=== PATIENT | female | born 1945 | race Hispanic/Latino ===

== ENCOUNTER 2019-05-22 13:49 | Inpatient (IN) | payer OTHER ==
[~2019-05-22] VITALS: Ht 167.6 cm; Wt 59.2 kg
[2019-05-22] MEDS ORDERED: CYCLOBENZAPRINE HCL 10 MG TABLET ONE (15:08)
[2019-05-22] MEDS ORDERED: TRAMADOL HCL 50 MG TABLET ONE (15:08)
[2019-05-22] MEDS ORDERED: ONDANSETRON ODT 4 MG TAB ONE (15:08)
[2019-05-22 16:43] LABS: BASOPHILS % (AUTO) 0.6 % (0.0-5.0); EOSINOPHILS % (AUTO) 0.7 % (0.0-8.0); HEMATOCRIT 34.4 % (36-48); LYMPHOCYTES % (AUTO) 16.4 % (21.0-51.0); MEAN CORPUSCULAR HEMOGLOBIN 30.2 pg (27.0-33.0); MEAN CORPUSCULAR HGB CONC 33.6 g/dL (32.0-36.0); MEAN CORPUSCULAR VOLUME 89.8 fL (79-99); MONOCYTES % (AUTO) 4.6 % (3.0-13.0); NEUTROPHILS % (AUTO) 77.7 % (40.0-77.0); PLATELET COUNT (AUTO) 289 K/uL (130-400); RED BLOOD CELL COUNT(AUTO) 3.83 MIL/uL (4.00-5.50); WHITE BLOOD COUNT (AUTO) 7.3 K/uL (4.8-10.8)
[2019-05-22 17:02] LABS: CREATININE 0.7 mg/dL (0.5-1.5); POTASSIUM 3.7 mmol/L (3.5-5.1)
[2019-05-22 17:08] LABS: ALBUMIN 3.8 g/dL (3.5-5.0); BILIRUBIN,TOTAL 0.3 mg/dL (0.2-1.0); TOTAL PROTEIN, SERUM 7.6 g/dL (6.0-8.3)
[2019-05-22] MEDS ORDERED: IOHEXOL-350 50ML VIAL IV ONE (17:39)
[2019-05-22] MEDS ORDERED: ONDANSETRON HCL 4 MG/2 ML VIAL ONE (19:28)
[2019-05-22] MEDS ORDERED: SODIUM CHLORIDE 0.9% 500ML 500 ML IV ONE (19:29)
[2019-05-22] MEDS ORDERED: MORPHINE SULFATE 4 MG/1ML SYG ONE (19:29)
[2019-05-22] MEDS ORDERED: ONDANSETRON HCL 4 MG/2 ML VIAL IV PRN (19:45)
[2019-05-22] MEDS ORDERED: HYDROCODONE/ACETAMINOPHEN 5/325 MG TAB PO PRN (19:45)
[2019-05-22] MEDS ORDERED: DEXTROSE 50%-WATER 50 ML DISP.SYRIN IV PRN (19:45)
[2019-05-22] MEDS ORDERED: ACETAMINOPHEN 325 MG TAB PO PRN (19:45)
[2019-05-22] MEDS ORDERED: GLUCAGON 1MG KIT 1 MG ML IM PRN (19:45)
[2019-05-22] MEDS ORDERED: NITROGLYCERIN 0.4 MG SL TAB SL PRN (19:45)
[2019-05-22 20:14] LABS: HEMOGLOBIN A1C 6.8 % (4.0-6.0)
[2019-05-22 20:21] LABS: CREATINE KINASE, TOTAL 29 U/L (21-232); MYOGLOBIN 23 ng/mL (10-92); TROPONIN I < 0.04 ng/mL (0.00-0.06)
[2019-05-22 22:30] VITALS: BP 186/80
[2019-05-22] MEDS: INSULIN HUMULIN R 100 UNIT/ML 3ML SQ SCH (23:00)
[2019-05-22] MEDS: FAMOTIDINE 20MG TAB 20 MG TAB PO SCH (23:00)
--- NOTE | 2019-05-23 | NUR ---
Nursing Note Pt's daughter is to bring medications and copy of POA
[2019-05-23 04:00] VITALS: BP 130/70
[2019-05-23 05:11] LABS: BASOPHILS % (AUTO) 0.9 % (0.0-5.0); EOSINOPHILS % (AUTO) 1.5 % (0.0-8.0); HEMATOCRIT 32.9 % (36-48); LYMPHOCYTES % (AUTO) 24.1 % (21.0-51.0); MEAN CORPUSCULAR HEMOGLOBIN 30.5 pg (27.0-33.0); MEAN CORPUSCULAR HGB CONC 33.6 g/dL (32.0-36.0); MEAN CORPUSCULAR VOLUME 90.8 fL (79-99); MONOCYTES % (AUTO) 8.4 % (3.0-13.0); NEUTROPHILS % (AUTO) 65.1 % (40.0-77.0); PLATELET COUNT (AUTO) 246 K/uL (130-400); RED BLOOD CELL COUNT(AUTO) 3.63 MIL/uL (4.00-5.50); RED CELL DISTRIBUTION WIDTH 13.7 % (11.0-15.5); WHITE BLOOD COUNT (AUTO) 5.2 K/uL (4.8-10.8)
[2019-05-23 05:23] LABS: ALBUMIN 3.2 g/dL (3.5-5.0); BILIRUBIN,TOTAL 0.4 mg/dL (0.2-1.0); CREATININE 0.8 mg/dL (0.5-1.5); POTASSIUM 3.9 mmol/L (3.5-5.1); TOTAL PROTEIN, SERUM 6.5 g/dL (6.0-8.3)
--- NOTE | 2019-05-23 06:16 | NUR ---
Nursing Note Paged On-call to inform about Gram Stain results. Waiting for call back
[2019-05-23] MEDS: INSULIN HUMULIN R 100 UNIT/ML 3ML SQ SCH ×4 (06:32→21:00)
[2019-05-23 07:00] VITALS: BP 116/51
--- NOTE | 2019-05-23 07:24 | NUR ---
Nursing Note Informed Dr. Jenkins that pt's Gram Stain is 1+ Gram positive cocci, 1+ epithelials, and Addendum: 05/23/19 at 0736 by NING IVERSON RN RN Informed Dr. Jenkins that pt's Gram Stain is 1+ Gram positive cocci, 1+ epithelials, and no WBCs seen. also waiting for aerobic cultures results. Dr. Jenkins stated "okay"
[2019-05-23] MEDS: FAMOTIDINE 20MG TAB 20 MG TAB PO SCH ×2 (09:31→22:08)
[2019-05-23] MEDS: ASPIRIN 325 MG TABLET PO SCH (09:31)
[2019-05-23] MEDS: ENOXAPARIN SODIUM 30 MG/0.3 ML SQ SCH (09:32)
[2019-05-23 10:15] LABS: APPEARANCE,URINE CLEAR (CLEAR); BILIRUBIN,URINE NEGATIVE (NEGATIVE); COLOR,URINE YELLOW (YELLOW); GLUCOSE, URINE (UA) NEGATIVE (NEGATIVE); KETONES,URINE NEGATIVE (NEGATIVE); LEUKOCYTE ESTERASE ,URINE TRACE (NEGATIVE); NITRATE,URINE NEGATIVE (NEGATIVE); OCCULT BLOOD,URINE TRACE-INTACT (NEGATIVE); PROTEIN,URINE NEGATIVE (NEGATIVE); UROBILINOGEN,URINE 0.2 mg/dL (0.2-1.0)
[2019-05-23 10:26] LABS: BACTERIA,URINE Rare /HPF (None Seen); MUCUS,URINE Rare LPF (None Seen); RBC,URINE 0-1 /HPF (0-1); SQUAMOUS EPITHELIAL CELL,UR Few /HPF (0-2)
--- NOTE | 2019-05-23 10:38 | NUR ---
[facility] consult Patient assessed as ordered. Patient has reddened, edematous right 4th toe. Patient reports pain upon light palpation and movement. No open ulcer was identified on the toe. No [facility] recommendations required. Report given to patient's nurse, Alvaro GARZA, and he will mention to MD for further evaluation.
[2019-05-23 11:00] VITALS: BP 118/57
[2019-05-23 16:00] VITALS: BP 144/66
[2019-05-23] MEDS: HYDROCODONE/ACETAMINOPHEN 5/325 MG TAB PO PRN (16:48)
--- NOTE | 2019-05-23 16:51 | NUR ---
INITIAL: Met with pt and dtr Nancy this afternoon to discuss dcp. Per pt she lives w her dtr and grandson. She uses a rollator for ambulation and is independent w ADLs. Pt states that she feels safe and comfortable to [place]. CM to continue to follow and wait for Md recommendations. low income packet provided along w prescription discount cards. Addendum: 05/24/19 at 1653 by EDMOND CHENG Amended: Links added.
[2019-05-23] MEDS: LACTULOSE 20 GM/30 ML UDCUP PO SCH ×2 (17:51→18:05)
[2019-05-23 20:00] VITALS: BP 166/76
[2019-05-23] MEDS: DOCUSATE NA 100MG/10ML UDCUP PO SCH (22:08)
[2019-05-24] VITALS: BP 122/54
[2019-05-24 04:00] VITALS: BP 136/69
[2019-05-24 05:22] LABS: HEMATOCRIT 32.7 % (36-48); MEAN CORPUSCULAR HEMOGLOBIN 30.2 pg (27.0-33.0); MEAN CORPUSCULAR HGB CONC 33.7 g/dL (32.0-36.0); MEAN CORPUSCULAR VOLUME 89.6 fL (79-99); NUCLEATED RED BLOOD CELLS 0.1 % (0.0-0.19); PLATELET COUNT (AUTO) 249 K/uL (130-400); RED BLOOD CELL COUNT(AUTO) 3.65 MIL/uL (4.00-5.50)
[2019-05-24 05:38] LABS: CREATININE 0.7 mg/dL (0.5-1.5); POTASSIUM 3.7 mmol/L (3.5-5.1)
[2019-05-24] MEDS: INSULIN HUMULIN R 100 UNIT/ML 3ML SQ SCH ×4 (06:56→20:45)
[2019-05-24 07:00] VITALS: BP 137/76
[2019-05-24] MEDS: ENOXAPARIN SODIUM 30 MG/0.3 ML SQ SCH (08:35)
[2019-05-24] MEDS: DOCUSATE NA 100MG/10ML UDCUP PO SCH ×2 (08:35→20:44)
[2019-05-24] MEDS: FAMOTIDINE 20MG TAB 20 MG TAB PO SCH ×2 (08:35→20:44)
[2019-05-24] MEDS: ASPIRIN 325 MG TABLET PO SCH (08:35)
[2019-05-24] MEDS: HYDROCODONE/ACETAMINOPHEN 5/325 MG TAB PO PRN ×2 (08:36→18:33)
[2019-05-24 11:00] VITALS: BP 118/64
[2019-05-24] MEDS ORDERED: POLYETHYLENE GLYCOL 3350 17 GM POWD.PACK PO SCH (13:00)
[2019-05-24 16:00] VITALS: BP 118/64
[2019-05-24] MEDS: LACTULOSE 20 GM/30 ML UDCUP PO SCH ×2 (18:00→18:28)
--- NOTE | 2019-05-24 19:30 | NUR ---
Received bedside report ,pt for procedure tomorrow by Interventional radiology,consent reay in chart.Pt. instructed to be NPO postmidnight and demonstrated understanding.
[2019-05-24 20:00] VITALS: BP 117/58
--- NOTE | 2019-05-24 22:59 | NUR ---
[facility] Fixer and Radiology staff Jona was called and notified regarding pt. for procedure tomorrow.
[2019-05-25] VITALS (14 sets, daily range): BP systolic 97–158; BP diastolic 37–82
--- NOTE | 2019-05-25 | NUR ---
Pt. kept NPO at this time.Pt. demonstrated understanding.
[2019-05-25 05:35] LABS: MEAN CORPUSCULAR HEMOGLOBIN 30.7 pg (27.0-33.0); MEAN CORPUSCULAR HGB CONC 34.3 g/dL (32.0-36.0); MEAN CORPUSCULAR VOLUME 89.5 fL (79-99); PLATELET COUNT (AUTO) 243 K/uL (130-400); RED BLOOD CELL COUNT(AUTO) 3.58 MIL/uL (4.00-5.50); RED CELL DISTRIBUTION WIDTH 13.8 % (11.0-15.5); WHITE BLOOD COUNT (AUTO) 6.5 K/uL (4.8-10.8)
[2019-05-25 05:45] LABS: CREATININE 0.7 mg/dL (0.5-1.5); POTASSIUM 3.5 mmol/L (3.5-5.1)
[2019-05-25 05:47] LABS: INR 0.95 (0.85-1.15); PARTIAL THROMBOPLASTIN TIME 30.6 SEC (26.3-35.5)
[2019-05-25] MEDS: INSULIN HUMULIN R 100 UNIT/ML 3ML SQ SCH ×4 (05:50→21:00)
[2019-05-25] MEDS: DOCUSATE NA 100MG/10ML UDCUP PO SCH (09:00)
[2019-05-25] MEDS: ENOXAPARIN SODIUM 30 MG/0.3 ML SQ SCH (09:00)
[2019-05-25] MEDS: FAMOTIDINE 20MG TAB 20 MG TAB PO SCH ×2 (09:00→21:24)
[2019-05-25] MEDS: POLYETHYLENE GLYCOL 3350 17 GM POWD.PACK PO SCH (09:00)
[2019-05-25] MEDS: ASPIRIN 325 MG TABLET PO SCH (09:00)
--- NOTE | 2019-05-25 09:03 | NUR ---
PO MEDS AND LOVENOX ARE HELD DUE TO SCHEDULED BIOPSY PROCEDURE.
[2019-05-25] MEDS ORDERED: SODIUM CHLORIDE 0.9% 1000ML 1,000 ML IV SCH (12:45)
--- NOTE | 2019-05-25 12:58 | NUR ---
TAKEN TO RADIOLOGY FOR SCHEDULE BIOPSY PROCEDURE ALERT AND STABLE, ACCOMPANIED BY HER DAUGHTER.
[2019-05-25] MEDS ORDERED: FENTANYL CITRATE PF 50 MCG/1 ML 2ML VIAL ONE (13:12)
[2019-05-25] MEDS ORDERED: MIDAZOLAM HCL 1 MG/ML 2ML VIAL ONE (13:13)
--- NOTE | 2019-05-25 13:38 | NUR ---
CT GD BX RIGHT UPPER CHEST WALL/RIGHT LUNG PROCEDURE PERFORMED BY DR MCCARTHY. PUNCTURE SITE TO THE ANTERIOR RIGHT UPPER CHEST AND PATIENT TOLERATED PROCEDURE WELL. SPECIMEN X 3 COLLECTED AND SENT TO LAB. END OF PROCEDURE AT 1353. BIOPSY NEEDLE REMOVED AND DRESSING APPLIED. NO BLEEDING NOTED. REPORT GIVEN TO ASHANTI CAROLINA RN AND PATIENT TRANSPORTED TO 3RD FLOOR RM 325 VIA BED. PT STABLE, AAO X3, WITH NO C/O PAIN.
--- NOTE | 2019-05-25 14:20 | NUR ---
RETURNED FROM RADIOLOGY ALERT AND AWAKE WITH FAMILY AT THE BEDSIDE. MID UPPER CHEST SITE NOTED WITH A SMALL BAND-AID COVERED WITH OPSITE THAT IS CLEAN AND DRY WITH NO BLEEDING OR HEMATOMA. VOICED PAIN ON THE SITE UPON ARRIVAL, WILL MEDICATE ACCORDINGLY.
[2019-05-25] MEDS: HYDROCODONE/ACETAMINOPHEN 5/325 MG TAB PO PRN (14:31)
--- NOTE | 2019-05-25 18:09 | NUR ---
Nutrition Intervention: Nutrition consult for recommendations. Pt. admitted with Dx of Chest wall mass. Pt. on 75gm CCD Heart Healthy diet with good p.o. intake, per pt. Pt. request soft food/chopped meats due to edentulous. Labs reviewed(Alb 3.2). SR-17, right foot ulcer to 4th digit. Spoke with pt. regarding protein supplementation and pt. agreed to try. LBM: 05/24/19. BMI: 21.1, normal for age. Recommendations: 1) Rec. 75gm CCD Heart Healthy [facility] Soft Chopped meats diet. 2) Rec. 30ml ProMod BID with B'fast and dinner meals. 3) Rec. 500mg Vit C BID and 220mg Zn sulfate QD to help promote wound healing. 4) Continue to monitor pt's nutritional status. 5) Consult RD as nutrition concerns arise. Addendum: 05/25/19 at [address] Amended: Links added.
[2019-05-25] MEDS ORDERED: BISACODYL 5 MG TABLET.DR PO PRN (18:15)
--- NOTE | 2019-05-25 18:20 | NUR ---
DR WINTERS CAME IN TO SEE THE PATIENT AND NEW ORDER WAS RECEIVED. PATIENT DENIES ACTIVE PAIN AT THIS TIME. CHEST SITE IS WITHIN NORMAL LIMIT.
[2019-05-25] MEDS: LEVOFLOXACIN 500 MG TABLET PO SCH (21:24)
[2019-05-26 03:30] VITALS: BP 127/57
[2019-05-26 04:26] LABS: HEMATOCRIT 31.5 % (36-48); MEAN CORPUSCULAR HEMOGLOBIN 30.5 pg (27.0-33.0); MEAN CORPUSCULAR HGB CONC 33.9 g/dL (32.0-36.0); MEAN CORPUSCULAR VOLUME 90.1 fL (79-99); PLATELET COUNT (AUTO) 232 K/uL (130-400); RED BLOOD CELL COUNT(AUTO) 3.49 MIL/uL (4.00-5.50); RED CELL DISTRIBUTION WIDTH 13.8 % (11.0-15.5); WHITE BLOOD COUNT (AUTO) 7.1 K/uL (4.8-10.8)
[2019-05-26 04:33] LABS: CREATININE 0.8 mg/dL (0.5-1.5); POTASSIUM 3.9 mmol/L (3.5-5.1)
[2019-05-26] MEDS: INSULIN HUMULIN R 100 UNIT/ML 3ML SQ SCH ×4 (05:35→21:00)
[2019-05-26 07:01] VITALS: BP 136/56
[2019-05-26] MEDS: FAMOTIDINE 20MG TAB 20 MG TAB PO SCH ×2 (08:23→20:39)
[2019-05-26] MEDS: ASPIRIN 325 MG TABLET PO SCH (08:23)
[2019-05-26] MEDS: HYDROCODONE/ACETAMINOPHEN 5/325 MG TAB PO PRN ×2 (08:25→20:40)
[2019-05-26] MEDS: POLYETHYLENE GLYCOL 3350 17 GM POWD.PACK PO SCH (08:30)
[2019-05-26] MEDS: ENOXAPARIN SODIUM 30 MG/0.3 ML SQ SCH (08:50)
[2019-05-26 11:30] VITALS: BP 103/59
[2019-05-26 15:32] VITALS: BP 141/54
[2019-05-26 20:00] VITALS: BP 161/72
[2019-05-26] MEDS: LEVOFLOXACIN 500 MG TABLET PO SCH (20:39)
[2019-05-27] VITALS (7 sets, daily range): BP systolic 122–174; BP diastolic 61–71
[2019-05-27] MEDS: INSULIN HUMULIN R 100 UNIT/ML 3ML SQ SCH ×4 (06:49→21:00)
--- NOTE | 2019-05-27 08:06 | NUR ---
report given to ASHANTI SAEED RN.
[2019-05-27] MEDS: ASPIRIN 325 MG TABLET PO SCH (09:01)
[2019-05-27] MEDS: HYDROCODONE/ACETAMINOPHEN 5/325 MG TAB PO PRN ×2 (09:01→17:37)
[2019-05-27] MEDS: FAMOTIDINE 20MG TAB 20 MG TAB PO SCH ×2 (09:01→21:41)
[2019-05-27] MEDS: POLYETHYLENE GLYCOL 3350 17 GM POWD.PACK PO SCH (09:02)
[2019-05-27] MEDS: ENOXAPARIN SODIUM 30 MG/0.3 ML SQ SCH (09:05)
[2019-05-27] MEDS ORDERED: MORPHINE SULFATE 2 MG/ML 1ML SYG IVP PRN (11:30)
[2019-05-27] MEDS: LEVOFLOXACIN 500 MG TABLET PO SCH (21:41)
[2019-05-28 04:09] VITALS: BP 147/69
[2019-05-28] MEDS: INSULIN HUMULIN R 100 UNIT/ML 3ML SQ SCH ×4 (06:03→21:00)
[2019-05-28] MEDS: HYDROCODONE/ACETAMINOPHEN 5/325 MG TAB PO PRN ×2 (06:46→20:28)
[2019-05-28 07:00] VITALS: BP 167/91
[2019-05-28] MEDS: FAMOTIDINE 20MG TAB 20 MG TAB PO SCH ×2 (09:16→20:27)
[2019-05-28] MEDS: POLYETHYLENE GLYCOL 3350 17 GM POWD.PACK PO SCH (09:16)
[2019-05-28] MEDS: ASPIRIN 325 MG TABLET PO SCH (09:16)
[2019-05-28] MEDS: ENOXAPARIN SODIUM 30 MG/0.3 ML SQ SCH (09:17)
[2019-05-28 11:00] VITALS: BP_SYST 131; BP_SYST 135; BP_DIAS 56; BP_DIAS 71
[2019-05-28] MEDS ORDERED: MORPHINE SULFATE 2 MG/ML 1ML SYG IVP PRN (12:45)
[2019-05-28 16:00] VITALS: BP 149/91
[2019-05-28 20:06] VITALS: BP 126/63
[2019-05-28] MEDS: LEVOFLOXACIN 500 MG TABLET PO SCH (20:28)
[2019-05-29 00:37] VITALS: BP 138/60
[2019-05-29 04:29] LABS: BASOPHILS % (AUTO) 0.7 % (0.0-5.0); EOSINOPHILS % (AUTO) 1.5 % (0.0-8.0); HEMATOCRIT 33.6 % (36-48); MEAN CORPUSCULAR HEMOGLOBIN 30.8 pg (27.0-33.0); MEAN CORPUSCULAR HGB CONC 34.5 g/dL (32.0-36.0); MEAN CORPUSCULAR VOLUME 89.5 fL (79-99); MONOCYTES % (AUTO) 8.3 % (3.0-13.0); NEUTROPHILS % (AUTO) 69.5 % (40.0-77.0); NUCLEATED RED BLOOD CELLS 0.1 % (0.0-0.19); PLATELET COUNT (AUTO) 262 K/uL (130-400); RED BLOOD CELL COUNT(AUTO) 3.76 MIL/uL (4.00-5.50); RED CELL DISTRIBUTION WIDTH 13.8 % (11.0-15.5); WHITE BLOOD COUNT (AUTO) 4.9 K/uL (4.8-10.8)
[2019-05-29 04:44] VITALS: BP 114/56
[2019-05-29 04:52] LABS: CREATININE 0.7 mg/dL (0.5-1.5); POTASSIUM 3.8 mmol/L (3.5-5.1)
[2019-05-29] MEDS: INSULIN HUMULIN R 100 UNIT/ML 3ML SQ SCH ×4 (06:51→21:00)
[2019-05-29 07:30] VITALS: BP 103/46
[2019-05-29 11:00] VITALS: BP 125/66
[2019-05-29] MEDS: ASPIRIN 325 MG TABLET PO SCH (11:28)
[2019-05-29] MEDS: POLYETHYLENE GLYCOL 3350 17 GM POWD.PACK PO SCH (11:28)
[2019-05-29] MEDS: FAMOTIDINE 20MG TAB 20 MG TAB PO SCH ×2 (11:28→21:28)
[2019-05-29] MEDS: HYDROCODONE/ACETAMINOPHEN 5/325 MG TAB PO PRN ×2 (11:29→21:28)
[2019-05-29] MEDS: ENOXAPARIN SODIUM 30 MG/0.3 ML SQ SCH (11:30)
[2019-05-29 16:00] VITALS: BP 149/88
[2019-05-29 20:00] VITALS: BP 147/65
[2019-05-29] MEDS: LEVOFLOXACIN 500 MG TABLET PO SCH (21:27)
[2019-05-30] VITALS: BP 139/70
[2019-05-30 04:00] VITALS: BP 123/73
[2019-05-30] MEDS: INSULIN HUMULIN R 100 UNIT/ML 3ML SQ SCH ×4 (05:33→21:00)
[2019-05-30 07:59] VITALS: BP 126/59
[2019-05-30] MEDS: POLYETHYLENE GLYCOL 3350 17 GM POWD.PACK PO SCH ×2 (09:58→10:01)
[2019-05-30] MEDS: FAMOTIDINE 20MG TAB 20 MG TAB PO SCH ×2 (09:58→22:19)
[2019-05-30] MEDS: ACETAMINOPHEN 325 MG TAB PO PRN ×2 (09:59→18:28)
[2019-05-30] MEDS: ASPIRIN 325 MG TABLET PO SCH ×2 (09:59→10:00)
[2019-05-30] MEDS: ENOXAPARIN SODIUM 30 MG/0.3 ML SQ SCH (10:03)
[2019-05-30 12:00] VITALS: BP 129/61
--- NOTE | 2019-05-30 14:50 | NUR ---
Paged Dr. Jenkins seed corn production manager for Dr. Delacruz to report Pathology results, return call pending.
[2019-05-30 16:00] VITALS: BP 121/59
[2019-05-30 19:51] VITALS: BP 122/59
[2019-05-30] MEDS: LEVOFLOXACIN 500 MG TABLET PO SCH (22:20)
[2019-05-31] VITALS (7 sets, daily range): BP systolic 125–164; BP diastolic 57–77
[2019-05-31] MEDS: INSULIN HUMULIN R 100 UNIT/ML 3ML SQ SCH ×4 (06:08→21:00)
[2019-05-31] MEDS: HYDROCODONE/ACETAMINOPHEN 5/325 MG TAB PO PRN ×2 (08:37→21:24)
[2019-05-31] MEDS: FAMOTIDINE 20MG TAB 20 MG TAB PO SCH ×2 (08:44→21:24)
[2019-05-31] MEDS: ENOXAPARIN SODIUM 30 MG/0.3 ML SQ SCH (08:45)
[2019-05-31] MEDS: FENTANYL 25 MCG/HR PATCH TD SCH (11:09)
[2019-05-31] MEDS: POLYETHYLENE GLYCOL 3350 17 GM POWD.PACK PO SCH (17:00)
[2019-05-31] MEDS: LEVOFLOXACIN 500 MG TABLET PO SCH (21:24)
[2019-06-01 04:00] VITALS: BP 137/59
[2019-06-01 06:01] LABS: BASOPHILS % (AUTO) 0.9 % (0.0-5.0); EOSINOPHILS % (AUTO) 1.1 % (0.0-8.0); HEMATOCRIT 34.5 % (36-48); LYMPHOCYTES % (AUTO) 15.1 % (21.0-51.0); MEAN CORPUSCULAR HEMOGLOBIN 30.4 pg (27.0-33.0); MEAN CORPUSCULAR HGB CONC 33.9 g/dL (32.0-36.0); MEAN CORPUSCULAR VOLUME 89.6 fL (79-99); MONOCYTES % (AUTO) 6.4 % (3.0-13.0); NEUTROPHILS % (AUTO) 76.5 % (40.0-77.0); PLATELET COUNT (AUTO) 298 K/uL (130-400); RED BLOOD CELL COUNT(AUTO) 3.85 MIL/uL (4.00-5.50); RED CELL DISTRIBUTION WIDTH 13.9 % (11.0-15.5)
[2019-06-01 06:07] LABS: CREATININE 0.7 mg/dL (0.5-1.5); POTASSIUM 3.7 mmol/L (3.5-5.1)
[2019-06-01] MEDS: INSULIN HUMULIN R 100 UNIT/ML 3ML SQ SCH ×4 (06:21→21:00)
[2019-06-01 08:00] VITALS: BP 123/78
[2019-06-01] MEDS: HYDROCODONE/ACETAMINOPHEN 5/325 MG TAB PO PRN ×2 (08:04→20:26)
[2019-06-01] MEDS: FAMOTIDINE 20MG TAB 20 MG TAB PO SCH ×2 (08:04→20:25)
[2019-06-01] MEDS: ASPIRIN 325 MG TABLET PO SCH (08:04)
[2019-06-01] MEDS: POLYETHYLENE GLYCOL 3350 17 GM POWD.PACK PO SCH (08:05)
[2019-06-01] MEDS: ENOXAPARIN SODIUM 30 MG/0.3 ML SQ SCH (08:07)
--- NOTE | 2019-06-01 11:18 | NUR ---
DC PLAN DR. BALDWIN WAS PECAN MALLOW DIPPER THIS WEEKEND. WANTED DR. VÁSQUEZ TO TALK TO PATIENT REGARDING BIOPSY RESULTS. NURSE TO CALL MD TODAY FOR UPDATE AND REC'S. Addendum: 06/01/19 at 1128 by KENDRA WHITE RN CM Amended: Links added.
[2019-06-01 11:35] VITALS: BP 106/57
[2019-06-01 16:00] VITALS: BP 129/50
--- NOTE | 2019-06-01 16:05 | NUR ---
RD Follow up note Pt tolerating current diet with no report of GI distress and PO intake 75-100%. Pt with 30mL ProMod BID in place. Pt LBM 05/29/19. Pt monitored labs: Cl 96, Glu 124. RD to continue to monitor. Pt with no new nutrition concerns at this time. Please notify RD as nutrition concerns arise. Thank you. Addendum: 06/01/19 at [address] Amended: Links added.
[2019-06-01 19:37] VITALS: BP 133/93
[2019-06-01] MEDS: LEVOFLOXACIN 500 MG TABLET PO SCH (20:25)
[2019-06-02] VITALS (13 sets, daily range): BP systolic 120–147; BP diastolic 49–67
[2019-06-02 04:57] LABS: BASOPHILS % (AUTO) 0.5 % (0.0-5.0); EOSINOPHILS % (AUTO) 1.1 % (0.0-8.0); HEMATOCRIT 33.4 % (36-48); LYMPHOCYTES % (AUTO) 13.8 % (21.0-51.0); MEAN CORPUSCULAR HEMOGLOBIN 30.8 pg (27.0-33.0); MEAN CORPUSCULAR HGB CONC 34.4 g/dL (32.0-36.0); MEAN CORPUSCULAR VOLUME 89.5 fL (79-99); MONOCYTES % (AUTO) 5.7 % (3.0-13.0); NEUTROPHILS % (AUTO) 78.9 % (40.0-77.0); PLATELET COUNT (AUTO) 278 K/uL (130-400); RED BLOOD CELL COUNT(AUTO) 3.73 MIL/uL (4.00-5.50); RED CELL DISTRIBUTION WIDTH 13.6 % (11.0-15.5); WHITE BLOOD COUNT (AUTO) 8.4 K/uL (4.8-10.8)
[2019-06-02] MEDS: INSULIN HUMULIN R 100 UNIT/ML 3ML SQ SCH ×4 (05:03→21:00)
[2019-06-02 05:10] LABS: CREATININE 0.8 mg/dL (0.5-1.5); POTASSIUM 3.4 mmol/L (3.5-5.1)
[2019-06-02] MEDS: HYDROCODONE/ACETAMINOPHEN 5/325 MG TAB PO PRN ×3 (07:54→22:02)
[2019-06-02] MEDS: ASPIRIN 325 MG TABLET PO SCH (09:00)
[2019-06-02] MEDS: ENOXAPARIN SODIUM 30 MG/0.3 ML SQ SCH (09:00)
[2019-06-02] MEDS: POLYETHYLENE GLYCOL 3350 17 GM POWD.PACK PO SCH (09:00)
[2019-06-02] MEDS: FAMOTIDINE 20MG TAB 20 MG TAB PO SCH ×2 (09:00→21:54)
--- NOTE | 2019-06-02 09:20 | NUR ---
LOVENOX HELD DUE TO PORTACATH PLACEMENT SCHEDULED TODAY
[2019-06-02] MEDS ORDERED: LIDOCAINE HCL 1% MDV 50ML VIAL ONE (09:51)
[2019-06-02] MEDS ORDERED: LIDOCAINE 1%-EPI 1:100,000 20 ML VIAL IJ ONE (09:51)
[2019-06-02] MEDS ORDERED: FENTANYL CITRATE PF 50 MCG/1 ML 2ML VIAL ONE (10:19)
[2019-06-02] MEDS ORDERED: OCTYL 2-CYANOACRYLATE 1 EACH TP ONE ×2 (10:53→11:15)
--- NOTE | 2019-06-02 11:45 | NUR ---
HOSPICE Sw spoke to CM. Pt has decided to go with Palliative chemo. Hospice referral cancelled
[2019-06-02] MEDS: LEVOFLOXACIN 500 MG TABLET PO SCH (20:15)
[2019-06-03] VITALS: BP 124/53
[2019-06-03 04:00] VITALS: BP 134/65
[2019-06-03 06:15] LABS: HEMATOCRIT 32.1 % (36-48); MEAN CORPUSCULAR HEMOGLOBIN 31.3 pg (27.0-33.0); MEAN CORPUSCULAR HGB CONC 34.9 g/dL (32.0-36.0); MEAN CORPUSCULAR VOLUME 89.8 fL (79-99); PLATELET COUNT (AUTO) 270 K/uL (130-400); RED BLOOD CELL COUNT(AUTO) 3.58 MIL/uL (4.00-5.50); WHITE BLOOD COUNT (AUTO) 7.6 K/uL (4.8-10.8)
[2019-06-03 06:23] LABS: CREATININE 0.7 mg/dL (0.5-1.5); POTASSIUM 3.6 mmol/L (3.5-5.1)
[2019-06-03] MEDS: INSULIN HUMULIN R 100 UNIT/ML 3ML SQ SCH ×3 (07:30→16:30)
[2019-06-03 08:00] VITALS: BP 113/53
[2019-06-03] MEDS: ASPIRIN 325 MG TABLET PO SCH (09:09)
[2019-06-03] MEDS: POLYETHYLENE GLYCOL 3350 17 GM POWD.PACK PO SCH (09:09)
[2019-06-03] MEDS: FAMOTIDINE 20MG TAB 20 MG TAB PO SCH (09:09)
[2019-06-03] MEDS: FENTANYL 25 MCG/HR PATCH TD SCH (09:09)
--- NOTE | 2019-06-03 09:09 | NUR ---
OBSERVED PATIENT COMING OUT OF THE RESTROOM WITH THE ASSISTANCE OF FLOOR HEELER MACHINE WITHOUT PROBLEM AND NO RESPIRATORY DIFFICULTY OBSERVED. VOICED GENERALIZED PAIN TO THE UPPER CHEST AREAS. PAIN PATCH APPLIED. WILL MONITOR.
[2019-06-03] MEDS: ENOXAPARIN SODIUM 30 MG/0.3 ML SQ SCH (09:11)
--- NOTE | 2019-06-03 10:35 | NUR ---
RESTING WITH EYES CLOSED, SEEMS COMFORTABLE.
[2019-06-03 11:00] VITALS: BP 121/59
[2019-06-03] MEDS ORDERED: TYL3 PO (15:47)
[2019-06-03 16:00] VITALS: BP 126/51
--- NOTE | 2019-06-03 16:00 | NUR ---
PATIENT IS DISCHARGED, BUT DEPENDS ON FAMILY TO COME TAKE HER HOME. FAMILY IS AT WORK AT THIS TIME.
[2019-06-03] MEDS: HYDROCODONE/ACETAMINOPHEN 5/325 MG TAB PO PRN (17:43)
--- NOTE | 2019-06-03 18:40 | NUR ---
DISCHARGE INSTRUCTIONS WERE GIVEN TO THE PATIENT'S DAUGHTER WITH PRESCRIPTION AND FOLLOW-UP RECOMMENDATIONS TO WHICH SHE VERBALIZED UNDERSTANDING. LIST OF PROVIDERS WAS GIVEN TO HER WELL FOR PCP CHOICE AND THE PORT CARD WITH THE MANUAL WAS GIVEN TO HER. IV ACCESS WAS REMOVED WITHOUT DIFFICULTY. PATIENT LEFT THE UNIT IN STABLE CONDITION VIA W/C ASSISTED BY FLOOR FEATHER BONER IN THE CARE OF HER DAUGHTER.
== END 2019-06-03 18:40 | disposition home or self-care (01) | DRG 181 ==
LOC: EDH 13:49 → EDHIP 13:50 → 3DH 22:24
PROVIDERS: ADMIT Internal Medicine; ATTEND Internal Medicine
PROC: 0BBK3ZX Excision of Right Lung, Percutaneous Approach, Diagnostic (ICD-10-PCS; 2019-05-23)
PROC: 0JH63XZ Insertion of Tunneled Vascular Access Device into Chest Subcutaneous Tissue and Fascia, Percutaneous Approach (ICD-10-PCS; principal; 2019-06-02)
PROC: 02H633Z Insertion of Infusion Device into Right Atrium, Percutaneous Approach (ICD-10-PCS; 2019-06-02)
PROC: B244ZZZ Ultrasonography of Right Heart (ICD-10-PCS; 2019-06-02)
DX: C34.91 Malignant neoplasm of unspecified part of right bronchus or lung (principal); C79.51 Secondary malignant neoplasm of bone; E44.0 Moderate protein-calorie malnutrition; J98.11 Atelectasis; E11.9 Type 2 diabetes mellitus without complications; Z68.21 Body mass index [BMI] 21.0-21.9, adult; E78.00 Pure hypercholesterolemia, unspecified; B95.61 Methicillin susceptible Staphylococcus aureus infection as the cause of diseases classified elsewhere; I10 Essential (primary) hypertension; I25.10 Atherosclerotic heart disease of native coronary artery without angina pectoris; L89.892 Pressure ulcer of other site, stage 2; I70.0 Atherosclerosis of aorta; K59.00 Constipation, unspecified; Z92.3 Personal history of irradiation; Z92.21 Personal history of antineoplastic chemotherapy; Z87.891 Personal history of nicotine dependence; Z85.818 Personal history of malignant neoplasm of other sites of lip, oral cavity, and pharynx; Z89.421 Acquired absence of other right toe(s); Z80.8 Family history of malignant neoplasm of other organs or systems
CPT/HCPCS: 32405; 36415; 36561; 71045; 71260; 73010; 73030; 77001; 77012; 80048; 80053; 81001; 82550; 82948; 83036; 83874; 84484; 85025; 85027; 85610; 85730; 87070; 87077; 87186; 87205; 88305; 93005; 99152; 99156; 99157; 99291; G0378; J1644; J1650; J2250; J2270; J2405; J3010; J3490; J7040; Q9967